=== PATIENT | female | born 1975 | race Two or more races ===

== ENCOUNTER 2020-06-03 08:37 | Emergency (ER) | payer OTHER, MEDICAID ==
[~2020-06-03] VITALS: Ht 153 cm; Wt 57.2 kg
--- NOTE | 2020-06-03 08:55 | NUR ---
ED Nurse Note: Pt ambulated to ED d/t back pain, nausea and epigastric pain that has been going on for 1 month. Per pt she has hx of heartburn. Pt is AOx4, calm and cooperative to care, pt denies any chest pain; VSS, on RA, afebrile on triage.
[2020-06-03 09:00] VITALS: BP 110/77
--- NOTE | 2020-06-03 09:00 | NUR ---
ED Nurse Note: urine collected, sent to lab
[2020-06-03] MEDS ORDERED: Mylanta II UD 30ml ORAL ONE (09:30)
[2020-06-03] MEDS ORDERED: Dicyclomine HCl 10mg/5ml oral soln ORAL ONE (09:30)
[2020-06-03] MEDS ORDERED: Lidocaine 2% Visc 15ml soln ORAL ONE (09:30)
[2020-06-03 09:53] LABS: APPEARANCE,URINE CLEAR; BILIRUBIN, URINE NEGATIVE (NEGATIVE); COLOR,URINE PALE YELLOW; GLUCOSE, URINE (UA) NEGATIVE (NEGATIVE); KETONES,URINE NEGATIVE (NEGATIVE); LEUKOCYTE ESTERASE ,URINE NEGATIVE (NEGATIVE); NITRITE,URINE NEGATIVE (NEGATIVE); PH,URINE 5 (4.5-8.0); PROTEIN,URINE NEGATIVE (NEGATIVE); UROBILINOGEN,URINE NORMAL MG/DL (0.0-1.0)
[2020-06-03] MEDS ORDERED: FAMOTIDINE20 MG ORAL (10:10)
[2020-06-03 10:30] VITALS: BP 108/74
--- NOTE | 2020-06-03 10:30 | NUR ---
ER DISCHARGE NOTE: Patient is cleared to be discharged per ERMD, pt is aox4, on room air, with stable vital signs. pt was given dc and prescription instructions, pt was able to verbalize understanding, pt id band removed. pt is able to ambulate with steady gait. pt took all belongings.
--- NOTE | 2020-06-03 13:41 | Emergency Room Report ---
History of Present Illness General Chief Complaint: Abdominal Pain Source: Patient Present Illness HPI 45-year-old female here with several months of epigastric abdominal pain. Patient says "I get heartburn a lot" and has not been taking medications for these symptoms. Says the pain is sharp in nature, located in the epigastric region, does not otherwise radiate. No headache, vision changes, fevers, chills , chest pain, palpitation, shortness of breath, back pain, other abdominal pain, nausea, vomiting, diarrhea, dysuria. Pain comes and goes on its own and is not relieved or alleviated by food. Allergies: Coded Allergies: No Known Allergies (Unverified , 06/03/20) COVID-19 Screening Contact w/high risk pt: No Experienced COVID-19 symptoms?: No COVID-19 Testing performed [employer]: Yes - 2 mos ago COVID-19 Screening: Negative COVID-19 COVID-19 Testing Source: nasopharynx Patient History Last Menstrual Period: may 19 2020 Now: No Nursing Documentation-[facility] Past Medical History: No Stated History Review of Systems All Other Systems: negative except mentioned in HPI Physical Exam Vital Signs Date Time Temp Pulse Resp B/P (MAP) Pulse Ox O2 Delivery O2 Flow Rate FiO2 06/03/20 08:48 98.1 63 19 110/77 (88) 96 Room Air Sp02 EP Interpretation: reviewed, normal General Appearance: no apparent distress, alert, non-toxic Head: normocephalic, atraumatic Eyes: bilateral eye normal inspection, bilateral eye PERRL ENT: hearing grossly normal, normal pharynx, no angioedema, normal voice Neck: full range of motion, supple/symm/no masses Respiratory: chest non-tender, lungs clear, normal breath sounds, speaking full sentences Cardiovascular #1: regular rate, rhythm, no edema Cardiovascular #2: 2+ carotid (R), 2+ carotid (L), 2+ radial (R), 2+ radial (L), 2+ dorsalis pedis (R), 2+ dorsalis pedis (L) Gastrointestinal: normal bowel sounds, non tender, soft, non-distended, no guarding, no rebound, other - Very mild midline epigastric tenderness on palpation. No Loaiza sign, no Rovsing sign Rectal: deferred Genitourinary: normal inspection, no CVA tenderness Musculoskeletal: back normal, normal range of motion, gait/station normal, non- tender Neurologic: alert, motor strength/tone normal, sensory intact, responsive, speech normal Psychiatric: judgement/insight normal, memory normal, mood/affect normal, no suicidal/homicidal ideation Lymphatic: no adenopathy Medical Decision Making Diagnostic Impression: Primary Impression: GERD (gastroesophageal reflux disease) Additional Impression: Abdominal pain ER Course Laboratory Tests Test 06/03/20 09:08 Urine Color Pale yellow Urine Appearance Clear Urine pH 5 (4.5-8.0) Urine Specific [place] 1.020 (1.005-1.035) Urine Protein Negative (NEGATIVE) Urine Glucose (UA) Negative (NEGATIVE) Urine Ketones Negative (NEGATIVE) Urine Blood Negative (NEGATIVE) Urine Nitrite Negative (NEGATIVE) Urine Bilirubin Negative (NEGATIVE) Urine Urobilinogen Normal MG/DL (0.0-1.0) Urine Leukocyte Esterase Negative (NEGATIVE) Urine RBC 0-2 /HPF (0 - 2) Urine WBC 0-2 /HPF (0 - 2) Urine Squamous Epithelial Cells Few /LPF (NONE/OCC) Urine Bacteria Occasional /HPF (NONE) Urine Opiates Screen Negative (NEGATIVE) Urine Barbiturates Screen Negative (NEGATIVE) Phencyclidine (PCP) Screen Negative (NEGATIVE) Urine Amphetamines Screen Negative (NEGATIVE) Urine Benzodiazepines Screen Negative (NEGATIVE) Urine Cocaine Screen Negative (NEGATIVE) Urine Marijuana (THC) Screen Negative (NEGATIVE) ddx: Hernia, bladder or kidney stones, diverticulitis, enteritis, appendicitis, genital pathology, GERD, cholecystitis 45-year-old female here with epigastric abdominal tenderness. Says that she has a longstanding history of gastritis and GERD. She has not been taking any medications for these symptoms. She was given a GI cocktail with good resolution of her symptoms. Given prescription for Pepcid. Urinalysis unremarkable. Told to come back to the emergency department for worsening symptoms. Discharged in stable condition. Last Vital Signs Date Time Temp Pulse Resp B/P (MAP) Pulse Ox O2 Delivery O2 Flow Rate FiO2 06/03/20 08:48 98.1 63 19 110/77 (88) 96 Room Air Disposition: HOME, SELF-CARE Condition: Stable Scripts Famotidine* (Pepcid 20mg tablet*) 20 Mg Tablet 20 MG ORAL DAILY for Gerd, #30 TAB 0 Refills Prov: Neo Fields M.D. 06/03/20 Referrals: [facility] Patient Instructions: Abdominal Pain, Adult Neo Fields M.D. Jun 03, 2020 13:41
--- NOTE | 2020-06-04 15:52 | Cardiology Report ---
APPROVED REPORT EKG Measurement Heart [id number] HI [id number] <Conclusion> Sinus bradycardia with sinus arrhythmia Low voltage QRS Borderline ECG
== END 2020-06-03 10:30 | disposition home or self-care (01) ==
LOC: EMR 09:30
DX: K21.9 Gastro-esophageal reflux disease without esophagitis (principal); R10.13 Epigastric pain
CPT/HCPCS: 80307; 81001; 93005; 99283